=== PATIENT | male | born 1940 | race Caucasian/White ===

== ENCOUNTER 2017-04-16 17:22 | Inpatient (IN) | payer MEDICARE, OTHER ==
[~2017-04-16] VITALS: Ht 185.4 cm; Wt 96.7 kg
[2017-04-16] MEDS ORDERED: MORPHINE SULFATE 4 MG/ML SYR/VIAL IV ONE (22:45)
[2017-04-16] MEDS ORDERED: ONDANSETRON HCL 4 MG/2 ML VIAL IV ONE (22:45)
[2017-04-17] MEDS ORDERED: ACETAMINOPHEN 500 MG TAB PO PRN (05:15)
[2017-04-17] MEDS ORDERED: ONDANSETRON HCL 4 MG/2 ML VIAL IV PRN (05:15)
[2017-04-17] MEDS ORDERED: HYDROcodone-ACET 5/325MG TAB PO PRN (05:15)
[2017-04-17] MEDS ORDERED: MORPHINE SULFATE 4 MG/ML SYR/VIAL IV PRN (05:15)
[2017-04-17 07:41] LABS: Basophils # (auto) 0 uL; Basophils % (auto) 0.9 % (0.0-2.0); Eosinophils # (auto) 0.1 uL; Eosinophils % (auto) 2.8 % (0.0-7.0); Hematocrit 43.1 % (41.0-53.0); Hemoglobin 14.5 g/dL (13.5-17.5); Lymphocytes % (auto) 31.6 % (10.0-50.0); Mean Corpuscular Hemoglobin 33.1 pg (28.0-32.0); Mean Corpuscular Hgb Conc. 33.7 g/dL (32.0-36.0); Mean Corpuscular Volume 98.2 fL (80.0-100.0); Monocytes # (auto) 0.4 uL; Monocytes % (auto) 13.3 % (0.0-12.0); Neutrophils # (auto) 1.6 uL; Neutrophils % (auto) 51.4 % (37.0-80.0); Nucleated Red Blood Cells % 0.2 %; Platelet Count (auto) 156 10^3/uL (140-450); Red Blood Cells 4.39 10^6/uL (4.5-5.90); Red Cell Distribution Width 16.5 % (11.8-14.3); White Blood Cell 3.1 10^3/uL (4.4-10.8)
[2017-04-17 07:57] LABS: BUN/Creatinine Ratio 11.3; Calcium 8.1 mg/dL (8.5-10.1); Potassium 3.5 mmol/L (3.5-5.1)
[2017-04-17 09:05] LABS: Albumin 3.2 g/dL (3.4-5.0)
[2017-04-17 09:06] LABS: INR 1.03 (0.9-1.15); Partial Thromboplastin Time 27.8 sec (22.64-33.71); Prothrombin Time 11.2 sec (9.37-12.3)
[2017-04-17 09:08] LABS: Bilirubin, Total 0.6 mg/dL (0.2-1.0); Total Protein 6.9 g/dL (6.4-8.2)
[2017-04-17 09:52] VITALS: BP 157/64
[2017-04-17] MEDS ORDERED: DEXTROSE (50%) 50ML SYRG IV PRN (16:15)
[2017-04-17] MEDS: InsuLIN REG 1unit/0.01ml Soln (100units/ml) SC SCH ×2 (17:00→22:00)
[2017-04-17 17:13] VITALS: BP 141/74
[2017-04-17] MEDS: ACCU-CHEK COMFORT CURVE STRIP VI SCH ×2 (17:18→22:52)
[2017-04-17 20:00] VITALS: BP 146/75
[2017-04-17 22:00] VITALS: BP 146/75
[2017-04-18 05:17] VITALS: BP 126/74
[2017-04-18] MEDS: InsuLIN REG 1unit/0.01ml Soln (100units/ml) SC SCH (06:11)
[2017-04-18] MEDS: ACCU-CHEK COMFORT CURVE STRIP VI SCH (06:11)
[2017-04-18 06:39] LABS: Basophils # (auto) 0 uL; Eosinophils # (auto) 0.1 uL; Eosinophils % (auto) 4.2 % (0.0-7.0); Hemoglobin 14.2 g/dL (13.5-17.5); Lymphocytes # (auto) 0.8 uL; Lymphocytes % (auto) 31.5 % (10.0-50.0); Mean Corpuscular Hemoglobin 33.2 pg (28.0-32.0); Mean Corpuscular Hgb Conc. 33.9 g/dL (32.0-36.0); Monocytes # (auto) 0.4 uL; Monocytes % (auto) 15.8 % (0.0-12.0); Neutrophils # (auto) 1.2 uL; Neutrophils % (auto) 47.5 % (37.0-80.0); Nucleated Red Blood Cells % 0.1 %; Platelet Count (auto) 143 10^3/uL (140-450); Red Blood Cells 4.28 10^6/uL (4.5-5.90); Red Cell Distribution Width 16.3 % (11.8-14.3); White Blood Cell 2.5 10^3/uL (4.4-10.8)
[2017-04-18 06:59] LABS: BUN/Creatinine Ratio 12.8; Calcium 8.2 mg/dL (8.5-10.1); Magnesium 2.4 mg/dL (1.6-2.6); Potassium 3.8 mmol/L (3.5-5.1)
== END 2017-04-18 08:25 | disposition left against medical advice (07) | DRG 552 ==
LOC: ER 17:22 → OVERFLOW 17:23 → CENTRAL 04-17 15:58
PROVIDERS: ADMIT Nurse Practitioner Family; ATTEND Internal Medicine
DX: M54.31 Sciatica, right side (principal); E11.9 Type 2 diabetes mellitus without complications; M87.851 Other osteonecrosis, right femur; M70.61 Trochanteric bursitis, right hip; Z96.641 Presence of right artificial hip joint; X58.XXXA Exposure to other specified factors, initial encounter; S70.01XA Contusion of right hip, initial encounter; Z92.21 Personal history of antineoplastic chemotherapy; Z92.3 Personal history of irradiation; Y93.89 Activity, other specified; Y92.89 Other specified places as the place of occurrence of the external cause; Z85.79 Personal history of other malignant neoplasms of lymphoid, hematopoietic and related tissues
CPT/HCPCS: 36415; 73502; 80048; 80053; 80061; 82962; 83036; 83735; 85025; 85610; 85652; 85730; 86141; 96374; 96375; 96376; J2405

== ENCOUNTER 2017-10-26 09:01 | Inpatient (IN) | payer MEDICARE, OTHER ==
[~2017-10-26] VITALS: Ht 180.3 cm; Wt 90.8 kg
[2017-10-26] MEDS ORDERED: SODIUM CHLORIDE 0.9% 1,000 ML IV ONE (10:53)
[2017-10-26 11:14] LABS: Basophils # (auto) 0 uL; Eosinophils # (auto) 0.2 uL; Nucleated Red Blood Cells % 0.1 %
[2017-10-26] MEDS ORDERED: FUROSEMIDE 40 MG/4 ML VIAL IV ONE ×2 (11:15→13:00)
[2017-10-26 11:16] LABS: Basophils % (auto) 0.5 % (0.0-2.0); Eosinophils % (auto) 3.4 % (0.0-7.0); Hematocrit 34.3 % (41.0-53.0); Hemoglobin 11.3 g/dL (13.5-17.5); Lymphocytes # (auto) 0.9 uL; Lymphocytes % (auto) 16.5 % (10.0-50.0); Mean Corpuscular Hemoglobin 31.5 pg (28.0-32.0); Mean Corpuscular Hgb Conc. 32.8 g/dL (32.0-36.0); Mean Corpuscular Volume 95.9 fL (80.0-100.0); Monocytes # (auto) 0.8 uL; Monocytes % (auto) 14.9 % (0.0-12.0); Neutrophils # (auto) 3.7 uL; Neutrophils % (auto) 64.7 % (37.0-80.0); Platelet Count (auto) 100 10^3/uL (140-450); Red Blood Cells 3.58 10^6/uL (4.5-5.90); White Blood Cell 5.7 10^3/uL (4.4-10.8)
[2017-10-26 11:21] LABS: Alanine Aminotransferase 17 U/L (16-61); Albumin 2.4 g/dL (3.4-5.0); Alkaline Phosphatase 70 U/L (45-117); Anion Gap 4 (5-15); Aspartate Aminotransferase 12 U/L (15-37); BUN/Creatinine Ratio 7.7; Bilirubin, Total 0.7 mg/dL (0.2-1.0); Blood Urea Nitrogen 6 mg/dL (7-18); Calcium 7.1 mg/dL (8.5-10.1); Carbon Dioxide 26 mmol/L (21-32); Chloride 111 mmol/L (98-107); GFR African American 124 mL/min; GFR Non-African American 102 mL/min; Glucose 107 mg/dL (74-106); Potassium 3.2 mmol/L (3.5-5.1); Sodium 141 mmol/L (136-145); Total Protein 5.6 g/dL (6.4-8.2)
[2017-10-26 11:43] LABS: Red Cell Distribution Width 21.3 % (11.8-14.3)
[2017-10-26] MEDS ORDERED: PIPERACILLIN-TAZOB 3.375GM 100 ML IV ONE (12:30)
[2017-10-26 12:40] LABS: Urine WBC None Seen /hpf (0 - 3)
[2017-10-26 12:53] LABS: Urine Bacteria NONE SEEN /hpf (None Seen); Urine Blood Negative /uL (Negative); Urine Specific Gravity 1.005 (1.001-1.035)
[2017-10-26] MEDS ORDERED: DIPHENOXYLATE W/ATROPINE 2.5 MG TAB PO PRN (13:00)
[2017-10-26] MEDS ORDERED: POTASSIUM CHL 20 Meq TABLET PO ONE (13:00)
[2017-10-26] MEDS ORDERED: MORPHINE SULF INJ 2 MG/ML SYRINGE 1ML IV PRN ×2 (13:15)
[2017-10-26] MEDS ORDERED: DOCUSATE SOD 100 MG CAP PO PRN (13:15)
[2017-10-26] MEDS ORDERED: ACETAMINOPHEN 325 MG TAB PO PRN (13:15)
[2017-10-26] MEDS ORDERED: HYDROcodone-ACET 5/325MG TAB PO PRN (13:15)
[2017-10-26] MEDS ORDERED: ONDANSETRON HCL 4 MG/2 ML VIAL IV PRN (13:15)
[2017-10-26] MEDS ORDERED: TEMAZEPAM 15 MG CAP PO PRN (13:15)
[2017-10-26] MEDS ORDERED: NITROGLYCERIN 0.4 MG SL TAB SL PRN (13:15)
[2017-10-26] MEDS: SODIUM CHLOR 0.9% PF (SALINE LOCK) 10ML VIAL/SYR IV SCH ×2 (14:22→22:00)
[2017-10-26] MEDS: CLINDAMYCIN 300MG IV 50 ML IV SCH ×2 (14:32→23:07)
[2017-10-26] MEDS: PIPERACILLIN-TAZOB 3.375GM 100 ML IV SCH (18:22)
[2017-10-26] MEDS: Ensure Enlive Strawberry 8oz Bottle PO SCH ×2 (18:23→22:00)
[2017-10-26] MEDS ORDERED: POM ×2 (19:39→19:45)
[2017-10-26] MEDS ORDERED: NEBI10TA2 PO (19:45)
[2017-10-26 20:00] VITALS: BP 130/70
[2017-10-26 22:00] VITALS: BP 130/70
[2017-10-26] MEDS: FAMOTIDINE 20 MG TAB PO SCH (22:42)
[2017-10-27] MEDS: PIPERACILLIN-TAZOB 3.375GM 100 ML IV SCH ×3 (00:29→12:08)
[2017-10-27 05:30] VITALS: BP 122/59
[2017-10-27] MEDS: SODIUM CHLOR 0.9% PF (SALINE LOCK) 10ML VIAL/SYR IV SCH ×3 (05:31→21:58)
[2017-10-27] MEDS: CLINDAMYCIN 300MG IV 50 ML IV SCH ×3 (05:31→21:59)
[2017-10-27] MEDS: Ensure Enlive Strawberry 8oz Bottle PO SCH ×4 (06:16→21:59)
[2017-10-27 08:16] LABS: Basophils # (auto) 0 uL; Basophils % (auto) 1.2 % (0.0-2.0); Eosinophils # (auto) 0.3 uL; Eosinophils % (auto) 10.1 % (0.0-7.0); Hematocrit 32.7 % (41.0-53.0); Hemoglobin 10.9 g/dL (13.5-17.5); Lymphocytes # (auto) 0.6 uL; Lymphocytes % (auto) 18.9 % (10.0-50.0); Mean Corpuscular Hemoglobin 31.3 pg (28.0-32.0); Mean Corpuscular Hgb Conc. 33.3 g/dL (32.0-36.0); Mean Corpuscular Volume 94.2 fL (80.0-100.0); Monocytes # (auto) 0.5 uL; Neutrophils # (auto) 1.7 uL; Neutrophils % (auto) 54.8 % (37.0-80.0); Nucleated Red Blood Cells % 0.2 %; Platelet Count (auto) 104 10^3/uL (140-450); Red Blood Cells 3.47 10^6/uL (4.5-5.90); White Blood Cell 3.1 10^3/uL (4.4-10.8)
[2017-10-27 08:20] LABS: Red Cell Distribution Width 20.7 % (11.8-14.3)
[2017-10-27 08:45] LABS: Albumin 2.2 g/dL (3.4-5.0); BUN/Creatinine Ratio 9.1; Bilirubin, Total 0.8 mg/dL (0.2-1.0); Calcium 6.9 mg/dL (8.5-10.1); Total Protein 5.5 g/dL (6.4-8.2)
[2017-10-27 08:51] LABS: Potassium 2.7 mmol/L (3.5-5.1)
[2017-10-27 09:26] VITALS: BP 113/65
[2017-10-27] MEDS ORDERED: POTASSIUM CHL 10 Meq TABLET PO SCH (10:00)
[2017-10-27] MEDS: BYSTOLIC 10 MG PO SCH (10:00)
[2017-10-27] MEDS: LENALIDOMIDE 10 MG PO SCH (10:00)
[2017-10-27] MEDS ORDERED: POTASSIUM EFFERVESENT TAB 25 MEQ PO ONE (10:30)
[2017-10-27] MEDS: ENOXAPARIN SOD 40 MG/0.4 ML SYRINGE SC SCH (10:42)
[2017-10-27] MEDS: FAMOTIDINE 20 MG TAB PO SCH ×2 (10:43→21:58)
[2017-10-27] MEDS: MULTIPLE VITAMIN TAB PO SCH (10:43)
[2017-10-27] MEDS: FUROSEMIDE 40 MG/4 ML VIAL IV SCH (10:53)
[2017-10-27 13:04] VITALS: BP 122/73
[2017-10-27 17:09] VITALS: BP 99/63
[2017-10-27] MEDS: cefTRIAXone 1GM/10ml IVPUSH 10 ML IV SCH (17:56)
[2017-10-27 21:36] VITALS: BP 124/52
[2017-10-28 04:32] VITALS: BP 114/88
[2017-10-28] MEDS: SODIUM CHLOR 0.9% PF (SALINE LOCK) 10ML VIAL/SYR IV SCH ×3 (06:00→21:01)
[2017-10-28] MEDS: Ensure Enlive Strawberry 8oz Bottle PO SCH ×4 (06:00→21:05)
[2017-10-28] MEDS: CLINDAMYCIN 300MG IV 50 ML IV SCH ×3 (06:01→21:02)
[2017-10-28 06:58] LABS: Basophils # (auto) 0 uL; Basophils % (auto) 1.7 % (0.0-2.0); Eosinophils # (auto) 0.3 uL; Eosinophils % (auto) 9.7 % (0.0-7.0); Hematocrit 32.8 % (41.0-53.0); Hemoglobin 11.1 g/dL (13.5-17.5); Lymphocytes # (auto) 0.6 uL; Lymphocytes % (auto) 22.9 % (10.0-50.0); Mean Corpuscular Hgb Conc. 33.8 g/dL (32.0-36.0); Mean Corpuscular Volume 94.5 fL (80.0-100.0); Monocytes # (auto) 0.4 uL; Monocytes % (auto) 14.8 % (0.0-12.0); Neutrophils # (auto) 1.4 uL; Neutrophils % (auto) 50.9 % (37.0-80.0); Nucleated Red Blood Cells % 0.3 %; Platelet Count (auto) 118 10^3/uL (140-450); Red Blood Cells 3.47 10^6/uL (4.5-5.90); White Blood Cell 2.8 10^3/uL (4.4-10.8)
[2017-10-28 07:00] LABS: Red Cell Distribution Width 20.6 % (11.8-14.3)
[2017-10-28 07:23] LABS: Alanine Aminotransferase 15 U/L (16-61); Albumin 2.3 g/dL (3.4-5.0); Alkaline Phosphatase 64 U/L (45-117); Anion Gap 7 (5-15); Aspartate Aminotransferase 8 U/L (15-37); BUN/Creatinine Ratio 12.2; Bilirubin, Total 0.5 mg/dL (0.2-1.0); Blood Urea Nitrogen 9 mg/dL (7-18); Calcium 7.2 mg/dL (8.5-10.1); Carbon Dioxide 30 mmol/L (21-32); Chloride 105 mmol/L (98-107); Cholesterol 191 mg/dL (< 200); GFR African American 132 mL/min; GFR Non-African American 109 mL/min; Glucose 122 mg/dL (74-106); HDL Cholesterol 38 mg/dL (40-59); LDL Cholesterol 138 mg/dL (< 100); Magnesium 1.9 mg/dL (1.6-2.6); Sodium 142 mmol/L (136-145); Total Protein 5.5 g/dL (6.4-8.2); Triglycerides 206 mg/dL (< 150)
[2017-10-28 07:43] LABS: Potassium 2.8 mmol/L (3.5-5.1)
[2017-10-28 09:00] VITALS: BP 125/71
[2017-10-28] MEDS: cefTRIAXone 1GM/10ml IVPUSH 10 ML IV SCH (09:00)
[2017-10-28] MEDS: LENALIDOMIDE 10 MG PO SCH (09:48)
[2017-10-28] MEDS: BYSTOLIC 10 MG PO SCH (09:48)
[2017-10-28] MEDS: ENOXAPARIN SOD 40 MG/0.4 ML SYRINGE SC SCH (09:56)
[2017-10-28] MEDS: POTASSIUM CHL 10 Meq TABLET PO SCH (09:56)
[2017-10-28] MEDS: POTASSIUM CHL 20 Meq TABLET PO SCH ×3 (09:56→21:01)
[2017-10-28] MEDS: MULTIPLE VITAMIN TAB PO SCH (09:57)
[2017-10-28] MEDS: FUROSEMIDE 40 MG/4 ML VIAL IV SCH (10:00)
[2017-10-28] MEDS: FAMOTIDINE 20 MG TAB PO SCH ×2 (10:36→21:01)
[2017-10-28 13:00] VITALS: BP 109/61
[2017-10-28 16:29] VITALS: BP 116/70
[2017-10-28 22:00] VITALS: BP 120/64
[2017-10-29 05:00] VITALS: BP 104/50
[2017-10-29] MEDS: SODIUM CHLOR 0.9% PF (SALINE LOCK) 10ML VIAL/SYR IV SCH (05:18)
[2017-10-29] MEDS: CLINDAMYCIN 300MG IV 50 ML IV SCH (05:18)
[2017-10-29] MEDS: Ensure Enlive Strawberry 8oz Bottle PO SCH (05:18)
[2017-10-29 06:04] LABS: Basophils # (auto) 0.1 uL; Basophils % (auto) 1.3 % (0.0-2.0); Eosinophils # (auto) 0.2 uL; Eosinophils % (auto) 5.7 % (0.0-7.0); Hematocrit 33.4 % (41.0-53.0); Hemoglobin 11.2 g/dL (13.5-17.5); Lymphocytes # (auto) 0.9 uL; Lymphocytes % (auto) 22.5 % (10.0-50.0); Mean Corpuscular Hgb Conc. 33.4 g/dL (32.0-36.0); Mean Corpuscular Volume 95.9 fL (80.0-100.0); Monocytes # (auto) 0.6 uL; Monocytes % (auto) 15.2 % (0.0-12.0); Neutrophils # (auto) 2.1 uL; Neutrophils % (auto) 55.3 % (37.0-80.0); Platelet Count (auto) 125 10^3/uL (140-450); Red Blood Cells 3.49 10^6/uL (4.5-5.90); White Blood Cell 3.9 10^3/uL (4.4-10.8)
[2017-10-29 06:18] LABS: Red Cell Distribution Width 21.2 % (11.8-14.3)
[2017-10-29 06:27] LABS: BUN/Creatinine Ratio 17.5; Calcium 8.4 mg/dL (8.5-10.1); Magnesium 1.8 mg/dL (1.6-2.6)
[2017-10-29 08:17] VITALS: BP 114/49
[2017-10-29] MEDS: ENOXAPARIN SOD 40 MG/0.4 ML SYRINGE SC SCH (09:31)
[2017-10-29] MEDS: MULTIPLE VITAMIN TAB PO SCH (09:32)
[2017-10-29] MEDS: POTASSIUM CHL 10 Meq TABLET PO SCH (09:32)
[2017-10-29] MEDS: FAMOTIDINE 20 MG TAB PO SCH (09:32)
[2017-10-29] MEDS: FUROSEMIDE 40 MG/4 ML VIAL IV SCH (09:33)
[2017-10-29] MEDS: BYSTOLIC 10 MG PO SCH (09:33)
[2017-10-29] MEDS: LENALIDOMIDE 10 MG PO SCH (09:33)
[2017-10-29] MEDS ORDERED: SULFAMETHOX W/TRIMETH(800/160MG) DS TAB PO SCH (10:00)
[2017-10-29 10:34] VITALS: BP 114/49
== END 2017-10-29 10:55 | disposition home or self-care (01) | DRG 871 ==
LOC: ER 09:02 → TELE 09:03 → TELE-WESTW 18:15
PROVIDERS: ADMIT Internal Medicine; ATTEND Internal Medicine
DX: A41.9 Sepsis, unspecified organism (principal); E43 Unspecified severe protein-calorie malnutrition; I50.43 Acute on chronic combined systolic (congestive) and diastolic (congestive) heart failure; L03.113 Cellulitis of right upper limb; L03.115 Cellulitis of right lower limb; L03.116 Cellulitis of left lower limb; E83.51 Hypocalcemia; E87.6 Hypokalemia; I11.0 Hypertensive heart disease with heart failure; D63.8 Anemia in other chronic diseases classified elsewhere; D69.6 Thrombocytopenia, unspecified; I87.2 Venous insufficiency (chronic) (peripheral); Z85.51 Personal history of malignant neoplasm of bladder; Z90.6 Acquired absence of other parts of urinary tract; Z68.27 Body mass index [BMI] 27.0-27.9, adult
CPT/HCPCS: 36415; 71045; 71250; 80048; 80053; 80061; 81001; 83036; 83735; 83880; 84132; 84484; 85025; 87040; 87086; 93306; 93970; 93971; 96361; 96365; 96366; 96375; A6257; J0696; J2543; J3490

== ENCOUNTER 2018-10-01 09:31 | Emergency (ER) | payer MEDICARE, OTHER ==
[~2018-10-01] VITALS: Ht 180.3 cm; Wt 90.7 kg
[~2018-10-01 09:31] MED LIST: NEBI10TA2 PO; POM
[2018-10-01 10:22] LABS: Basophils # (auto) 0 uL; Eosinophils # (auto) 0 uL; Lymphocytes # (auto) 0.9 uL
[2018-10-01 10:25] LABS: Basophils % (auto) 0.7 % (0.0-2.0); Eosinophils % (auto) 0.4 % (0.0-7.0); Hematocrit 43.7 % (41.0-53.0); Hemoglobin 14.8 g/dL (13.5-17.5); Lymphocytes % (auto) 15.6 % (10.0-50.0); Mean Corpuscular Hemoglobin 33.9 pg (28.0-32.0); Mean Corpuscular Hgb Conc. 33.8 g/dL (32.0-36.0); Mean Corpuscular Volume 100.2 fL (80.0-100.0); Monocytes # (auto) 0.5 uL; Monocytes % (auto) 7.9 % (0.0-12.0); Neutrophils # (auto) 4.5 uL; Neutrophils % (auto) 75.4 % (37.0-80.0); Nucleated Red Blood Cells % 0.2 %; Platelet Count (auto) 168 10^3/uL (140-450); Red Blood Cells 4.36 10^6/uL (4.5-5.90); Red Cell Distribution Width 16.7 % (11.8-14.3)
[2018-10-01 10:46] LABS: Albumin 3.7 g/dL (3.4-5.0); Calcium 8.5 mg/dL (8.5-10.1); Potassium 4.1 mmol/L (3.5-5.1)
[2018-10-01 10:49] LABS: BUN/Creatinine Ratio 10.1; Bilirubin, Total 0.4 mg/dL (0.2-1.0); Total Protein 7.7 g/dL (6.4-8.2)
[2018-10-01 11:17] LABS: Urine Bacteria NONE SEEN /hpf (None Seen); Urine Blood Negative /uL (Negative); Urine Mucus FEW (None Seen); Urine Specific Gravity 1.021 (1.001-1.035); Urine WBC 3 /hpf (0 - 3)
[2018-10-01 12:20] VITALS: BP 132/68
[2018-10-01] MEDS ORDERED: DIPHENOXYLATE W/ATROPINE 2.5 MG TAB PO ONE (12:30)
== END 2018-10-01 12:56 | disposition home or self-care (01) ==
LOC: ER 09:31
DX: R19.7 Diarrhea, unspecified (principal); C90.00 Multiple myeloma not having achieved remission; Z79.899 Other long term (current) drug therapy
CPT/HCPCS: 36415; 74176; 80053; 81001; 85025

== ENCOUNTER 2020-03-12 15:27 | Inpatient (IN) | payer MEDICARE, OTHER ==
[~2020-03-12] VITALS: Ht 177.8 cm; Wt 85.4 kg
[2020-03-12 17:13] LABS: Basophils # (auto) 0 10 ^3/uL (0-0.2); Basophils % (auto) 0.1 % (0.0-2.0); Eosinophils # (auto) 0 10 ^3/uL (0-0.8); Lymphocytes # (auto) 0.3 10 ^3/uL (0.4-5.4); Platelet Count (auto) 186 10^3/uL (140-450); Red Cell Distribution Width 17.7 % (11.8-14.3)
[2020-03-12 17:15] LABS: Hematocrit 36.6 % (41.0-53.0); Hemoglobin 12.5 g/dL (13.5-17.5); Lymphocytes % (auto) 2.1 % (10.0-50.0); Mean Corpuscular Hemoglobin 35.3 pg (28.0-32.0); Mean Corpuscular Hgb Conc. 34.2 g/dL (32.0-36.0); Mean Corpuscular Volume 103.2 fL (80.0-100.0); Monocytes # (auto) 0.8 10 ^3/uL (0-1.3); Monocytes % (auto) 6.3 % (0.0-12.0); Neutrophils # (auto) 11.2 10 ^3/uL (1.6-8.6); Neutrophils % (auto) 91.5 % (37.0-80.0); Red Blood Cells 3.55 10^6/uL (4.5-5.90); White Blood Cell 12.2 10^3/uL (4.4-10.8)
[2020-03-12] MEDS ORDERED: cefTRIAXone 1GM/50ML D5W 50 ML IV ONE (17:30)
[2020-03-12 18:20] LABS: Albumin 3.5 g/dL (3.4-5.0); Anion Gap 8 (5-15); Blood Urea Nitrogen 14 mg/dL (7-18); Calcium 8.1 mg/dL (8.5-10.1); Carbon Dioxide 25 mmol/L (21-32); Chloride 110 mmol/L (98-107); Glucose 161 mg/dL (74-106); Potassium 3.8 mmol/L (3.5-5.1); Sodium 143 mmol/L (136-145)
[2020-03-12 18:29] LABS: Alanine Aminotransferase 27 U/L (16-61); Alkaline Phosphatase 86 U/L (45-117); Aspartate Aminotransferase 38 U/L (15-37); BUN/Creatinine Ratio 11.7; GFR African American 75 mL/min; GFR Non-African American 62 mL/min; Total Protein 7.2 g/dL (6.4-8.2)
[2020-03-12] MEDS ORDERED: DOCUSATE CALCIUM 240 MG CAP PO PRN (20:45)
[2020-03-12] MEDS ORDERED: NITROGLYCERIN 0.4 MG SL TAB SL PRN (20:45)
[2020-03-12] MEDS ORDERED: MORPHINE SULF INJ 2 MG/ML SYRINGE 1ML IV PRN (20:45)
[2020-03-12] MEDS ORDERED: TETANUS-DIPTH-ACEL PERTUSSIS 0.5ML SYR Tdap IM ONE (20:45)
[2020-03-12] MEDS: ACCU-CHEK COMFORT CURVE STRIP VI SCH (23:44)
[2020-03-12] MEDS: INSULIN LANTUS (GLARGINE) 1 /0.01ml (100units/ml) SC SCH (23:45)
[2020-03-12] MEDS: LORazepam 0.5 MG TAB PO PRN (23:49)
[2020-03-13 00:01] LABS: Urine Amorphous Crystal FEW /hpf (None Seen); Urine Bacteria NONE SEEN /hpf (None Seen); Urine Blood 2+ /uL (Negative); Urine Mucus FEW (None Seen); Urine Specific Gravity 1.027 (1.001-1.035); Urine WBC 5 /hpf (0 - 3)
[2020-03-13 00:10] LABS: Alcohol, Urine < 3.0 mg/dL (0-10); Amphetamine Screen, Urine NEGATIVE (NEGATIVE); Barbiturate Scree,Urine NEGATIVE (NEGATIVE); Benzodiazephine Screen, Urine NEGATIVE (NEGATIVE); Cannabinoid Screen, Urine NEGATIVE (NEGATIVE); Cocaine Screen, Urine NEGATIVE (NEGATIVE); Opiate Scree,Urine NEGATIVE (NEGATIVE); Phencyclidine Screen, Urine NEGATIVE (NEGATIVE)
[2020-03-13] MEDS: ACCU-CHEK COMFORT CURVE STRIP VI SCH ×2 (06:14→18:10)
[2020-03-13 07:22] LABS: Basophils # (auto) 0 10 ^3/uL (0-0.2); Basophils % (auto) 0.2 % (0.0-2.0); Eosinophils # (auto) 0.1 10 ^3/uL (0-0.8); Lymphocytes # (auto) 0.9 10 ^3/uL (0.4-5.4); Monocytes # (auto) 0.7 10 ^3/uL (0-1.3); Nucleated Red Blood Cells % 0.1 %
[2020-03-13 07:26] LABS: Eosinophils % (auto) 1.1 % (0.0-7.0); Hematocrit 33.6 % (41.0-53.0); Hemoglobin 11.6 g/dL (13.5-17.5); Lymphocytes % (auto) 12.3 % (10.0-50.0); Mean Corpuscular Hemoglobin 35.6 pg (28.0-32.0); Mean Corpuscular Hgb Conc. 34.4 g/dL (32.0-36.0); Mean Corpuscular Volume 103.6 fL (80.0-100.0); Monocytes % (auto) 10.7 % (0.0-12.0); Neutrophils # (auto) 5.3 10 ^3/uL (1.6-8.6); Neutrophils % (auto) 75.7 % (37.0-80.0); Platelet Count (auto) 155 10^3/uL (140-450); Red Blood Cells 3.25 10^6/uL (4.5-5.90)
[2020-03-13 07:45] LABS: INR 1.04 (0.9-1.15); Partial Thromboplastin Time 28.5 sec (23.0-31.2)
[2020-03-13 07:48] LABS: Potassium 3.5 mmol/L (3.5-5.1)
[2020-03-13 07:59] LABS: Albumin 2.9 g/dL (3.4-5.0); BUN/Creatinine Ratio 15.6; Bilirubin, Total 0.8 mg/dL (0.2-1.0); Calcium 7.9 mg/dL (8.5-10.1); Total Protein 6.6 g/dL (6.4-8.2)
[2020-03-13] MEDS: NEBIVOLOL 10 MG PO SCH (10:00)
[2020-03-13] MEDS: PANTOPRAZOLE 40 MG TAB PO SCH (10:50)
[2020-03-13] MEDS: SODIUM CHLORIDE 0.9% 1,000 ML IV SCH ×2 (17:17→20:00)
[2020-03-13 20:03] VITALS: BP 141/71
[2020-03-13 21:00] VITALS: BP 141/71
[2020-03-13] MEDS: INSULIN LANTUS (GLARGINE) 1 /0.01ml (100units/ml) SC SCH (21:30)
[2020-03-13 22:00] VITALS: BP 141/71
[2020-03-14] MEDS: ACCU-CHEK COMFORT CURVE STRIP VI SCH ×2 (00:16→05:16)
[2020-03-14] MEDS: SODIUM CHLORIDE 0.9% 1,000 ML IV SCH ×3 (03:59→20:11)
[2020-03-14] MEDS ORDERED: INFLUENZA QUAD 2020-2021 0.5 ML SYRG IM ONE (05:45)
[2020-03-14 06:00] VITALS: BP 121/63
[2020-03-14 08:00] VITALS: BP 135/69
[2020-03-14] MEDS: NEBIVOLOL 10 MG PO SCH (09:21)
[2020-03-14] MEDS: PANTOPRAZOLE 40 MG TAB PO SCH (10:00)
[2020-03-14] MEDS: ENOXAPARIN SOD 40 MG/0.4 ML SYRINGE SC SCH (10:40)
[2020-03-14] MEDS ORDERED: IOHEXOL 350 MG/ML 100ML IJ ONE (12:30)
[2020-03-14 16:00] VITALS: BP 144/62
[2020-03-14] MEDS: LORazepam 0.5 MG TAB PO PRN (21:19)
[2020-03-14 22:00] VITALS: BP 144/66
[2020-03-15] MEDS: SODIUM CHLORIDE 0.9% 1,000 ML IV SCH ×3 (03:32→20:17)
[2020-03-15 05:00] VITALS: BP 144/71
[2020-03-15] MEDS: NEBIVOLOL 10 MG PO SCH (07:33)
[2020-03-15 08:00] VITALS: BP 129/79
[2020-03-15] MEDS: PANTOPRAZOLE 40 MG TAB PO SCH (09:54)
[2020-03-15] MEDS: ENOXAPARIN SOD 40 MG/0.4 ML SYRINGE SC SCH (09:54)
[2020-03-15 16:00] VITALS: BP 145/79
[2020-03-15 22:00] VITALS: BP 134/96
[2020-03-15] MEDS: LORazepam 0.5 MG TAB PO PRN (23:53)
[2020-03-16] MEDS: SODIUM CHLORIDE 0.9% 1,000 ML IV SCH ×3 (04:10→22:23)
[2020-03-16 05:00] VITALS: BP 160/79
[2020-03-16] MEDS: ENOXAPARIN SOD 40 MG/0.4 ML SYRINGE SC SCH (09:38)
[2020-03-16] MEDS: PANTOPRAZOLE 40 MG TAB PO SCH (09:38)
[2020-03-16] MEDS: NEBIVOLOL 10 MG PO SCH (09:39)
[2020-03-16] MEDS: hydrALAZINE HCL 20 MG/ML VL IV PRN ×2 (09:39→21:33)
[2020-03-16] MEDS: LORazepam 0.5 MG TAB PO PRN (21:25)
[2020-03-16 21:36] VITALS: BP 158/84
[2020-03-16] MEDS ORDERED: LORazepam 2MG/ML-1ML VIAL IV PRN (22:15)
[2020-03-17 00:49] LABS: Folate (Folic Acid) 10.21 ng/mL (5.38-24)
[2020-03-17] MEDS: SODIUM CHLORIDE 0.9% 1,000 ML IV SCH ×2 (04:00→12:32)
[2020-03-17 05:17] VITALS: BP 158/98
[2020-03-17 08:00] VITALS: BP 153/79
[2020-03-17] MEDS: NEBIVOLOL 10 MG PO SCH (09:33)
[2020-03-17] MEDS: ENOXAPARIN SOD 40 MG/0.4 ML SYRINGE SC SCH (09:35)
[2020-03-17] MEDS: PANTOPRAZOLE 40 MG TAB PO SCH (09:35)
[2020-03-17 15:23] VITALS: BP 148/84
[2020-03-17 16:00] VITALS: BP 133/85
[2020-03-17] MEDS ORDERED: DONEPEZIL HYDROCHLORIDE 5 MG TAB PO SCH (22:00)
== END 2020-03-17 19:00 | disposition hospice, inpatient (51) | DRG 71 ==
LOC: ER 15:27 → EDBD 15:27 → TELE 15:28 → TELE-CENTR 03-13 20:01
PROVIDERS: ADMIT Family Medicine; ATTEND Family Medicine
DX: G93.41 Metabolic encephalopathy (principal); M62.82 Rhabdomyolysis; C90.00 Multiple myeloma not having achieved remission; E83.51 Hypocalcemia; Z20.822 Contact with and (suspected) exposure to COVID-19; F03.90 Unspecified dementia, unspecified severity, without behavioral disturbance, psychotic disturbance, mood disturbance, and anxiety; D72.829 Elevated white blood cell count, unspecified; D64.9 Anemia, unspecified; L40.9 Psoriasis, unspecified; I10 Essential (primary) hypertension; E53.8 Deficiency of other specified B group vitamins; E86.0 Dehydration; F17.200 Nicotine dependence, unspecified, uncomplicated; Z96.641 Presence of right artificial hip joint; R73.9 Hyperglycemia, unspecified; S60.511A Abrasion of right hand, initial encounter; I67.2 Cerebral atherosclerosis; I70.0 Atherosclerosis of aorta; W18.30XA Fall on same level, unspecified, initial encounter; M47.816 Spondylosis without myelopathy or radiculopathy, lumbar region; Y93.89 Activity, other specified; Y92.89 Other specified places as the place of occurrence of the external cause; Y99.8 Other external cause status; Z79.899 Other long term (current) drug therapy; Z85.51 Personal history of malignant neoplasm of bladder; Z92.3 Personal history of irradiation
CPT/HCPCS: 36415; 70450; 71045; 71275; 72192; 80053; 80307; 80320; 81001; 82550; 82607; 82746; 82962; 83036; 84436; 84443; 84484; 85025; 85379; 85610; 85730; 87040; 87426; 90471; 90715; 93970; 96365; 96372; 96375; G0378; J0696; J1815